=== PATIENT | male | born 1985 | race Caucasian/White ===

== ENCOUNTER 2016-05-30 04:52 | Emergency (ER) | payer SELFPAY ==
[~2016-05-30 04:52] MED LIST: AUGMENTIN 875-11 TAB PO; CIPRO500 MG PO; NORCO 5/325 TAB1 TAB PO
[2016-05-30] MEDS ORDERED: ADVIL COLD & S1 EAC2 PO (05:05)
[2016-05-30] MEDS ORDERED: ZITHROMAX250 M1 PO (06:38)
[2016-05-30] MEDS ORDERED: VENTOLIN HFA18 G2 PO (06:38)
[2016-05-30] MEDS ORDERED: PREDNISONE20 M1 PO (06:38)
== END 2016-05-30 06:43 ==
LOC: EDMED 04:52
DX: J40 Bronchitis, not specified as acute or chronic (principal); Z87.891 Personal history of nicotine dependence
CPT/HCPCS: J7512